=== PATIENT | female | born 1975 | race Caucasian/White ===

== ENCOUNTER 2017-10-14 10:25 | Emergency (ER) | payer OTHER ==
[~2017-10-14] VITALS: Ht 165.1 cm; Wt 108.9 kg
[~2017-10-14 10:25] MED LIST: CIPRO500 MG PO; COUMADIN 5 MG TA5 M1; LIDOCAINE VISC100 M1 MM; NICOTINE TRANSD21 M1 TRANSDERM; NOHOMEMEDICATIONS; NORCO 5-325 TA1 EACH PO; OXYCODONE HCL5 M1 PO; PREDNISONE 20 M20 MG PO; PREVACID 24HR15 MG PO; VENTOLIN HFA 1818 GM INH
[2017-10-14] MEDS ORDERED: AMOXICILLIN 50500 M1 PO (11:25)
[2017-10-14] MEDS ORDERED: PREDNISONE 20 M20 MG PO (11:25)
[2017-10-14 12:44] VITALS: BP 145/76
== END 2017-10-14 12:45 | disposition home or self-care (01) ==
LOC: ER 10:25
DX: H66.91 Otitis media, unspecified, right ear (principal); J45.909 Unspecified asthma, uncomplicated; F17.210 Nicotine dependence, cigarettes, uncomplicated

== ENCOUNTER 2017-10-18 19:28 | Emergency (ER) | payer OTHER ==
[~2017-10-18] VITALS: Ht 165.1 cm; Wt 105.2 kg
--- NOTE | ~2017-10-18 | EKG ---
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
[~2017-10-18 19:28] MED LIST changes: +AMOXICILLIN 50500 M1 PO
[2017-10-18 20:17] LABS: HEMATOCRIT 41.9 % (37.0-47.0); HEMOGLOBIN 14.2 gm/dL (12.0-15.0); MCH 27.4 pg (26.0-34.0); MCHC 33.9 g/dL (28.0-37.0); MCV 80.8 fL (80.0-100.0); PLATELET COUNT 347 thou/uL (150-400); RBC 5.19 mil/uL (4.20-5.00); RDW 14.8 % (10.5-14.5); WBC 20.8 thou/uL (4.0-11.0)
[2017-10-18 20:27] LABS: ANION GAP 9 mmol/L (7-16); BUN 16 mg/dL (7-18); CALCIUM 8.8 mg/dL (8.5-10.1); CHLORIDE 107 mmol/L (98-107); CO2 26 mmol/L (21-32); GLUCOSE 213 mg/dL (74-106); POTASSIUM 4.5 mmol/L (3.5-5.1); SODIUM 142 mmol/L (136-145)
[2017-10-18 20:36] LABS: TROPONIN-I < 0.04 ng/mL (<0.06)
[2017-10-18 20:48] LABS: ABSOLUTE NEUTROPHILS 15.4 thou/uL (1.4-8.2)
[2017-10-18] MEDS ORDERED: ANTIVERT25 MG PO (21:02)
[2017-10-18] MEDS ORDERED: PRILOSEC OTC20 MG PO (21:08)
[2017-10-18 21:25] VITALS: BP 139/77
== END 2017-10-18 21:15 | disposition home or self-care (01) ==
LOC: ER 19:28
PROVIDERS: Physician Assistant
DX: K21.9 Gastro-esophageal reflux disease without esophagitis (principal); J32.9 Chronic sinusitis, unspecified; R42 Dizziness and giddiness; Z86.14 Personal history of Methicillin resistant Staphylococcus aureus infection; F17.210 Nicotine dependence, cigarettes, uncomplicated

== ENCOUNTER 2018-01-14 17:12 | Emergency (ER) | payer OTHER ==
[~2018-01-14] VITALS: Ht 165.1 cm; Wt 108.9 kg
--- NOTE | ~2018-01-14 | EKG ---
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: : 1975 Requested By: Maria Alejandra Ricardo Order Number: [id number] MD: Spencer Spencer Measurements Intervals [place] Rate: 68 P: 51 [place]: 153 QRS: -34 QRSD: 87 T: 18 QT: 386 QTc: 411 Interpretive Statements Sinus rhythm Left axis deviation Poor R wave progression Compared to ECG 10/18/2017 19:53:19 No significant change was found Electronically Signed On 01-15-2018 11:48:56 CDT by Spencer Spencer [email or web address] <ELECTRONICALLY SIGNED> By: Spencer Spencer MD, [facility] 01/15/18 1148 D: 06/1829 29 Spencer Spencer MD, FACC /EPI
[~2018-01-14 17:12] MED LIST changes: +ANTIVERT25 MG PO; +PRILOSEC OTC20 MG PO
[2018-01-14 18:09] LABS: ABSOLUTE NEUTROPHILS 6.9 thou/uL (1.4-8.2); BASOPHILS 0.8 % (0.0-2.0); EOSINOPHILS 1.3 % (0.0-3.0); HEMATOCRIT 44.7 % (37.0-47.0); HEMOGLOBIN 14.8 gm/dL (12.0-15.0); LYMPHOCYTES 31.8 % (24.0-44.0); MCHC 33.1 g/dL (28.0-37.0); MCV 81.7 fL (80.0-100.0); PLATELET COUNT 291 thou/uL (150-400); POLYS 60.1 % (36.0-66.0); RBC 5.47 mil/uL (4.20-5.00); RDW 14.5 % (10.5-14.5); WBC 11.4 thou/uL (4.0-11.0)
[2018-01-14 18:17] LABS: CALCIUM 8.7 mg/dL (8.5-10.1); CREATININE 1.1 mg/dL (0.6-1.0); POTASSIUM 3.9 mmol/L (3.5-5.1)
[2018-01-14 18:23] LABS: ALBUMIN 3.3 g/dL (3.4-5.0); TOTAL BILIRUBIN 0.4 mg/dL (<0.1-1.0); TOTAL PROTEIN 7.3 g/dL (6.4-8.2)
[2018-01-14 18:39] LABS: URINE BILIRUBIN NEGATIVE (Negative); URINE BLOOD TRACE (Negative); URINE CLARITY CLEAR; URINE COLOR YELLOW; URINE GLUCOSE-RANDOM* NEGATIVE (Negative); URINE KETONES NEGATIVE (Negative); URINE LEUKOCYTES-REFLEX NEGATIVE (Negative); URINE NITRITE-REFLEX NEGATIVE (Negative); URINE PROTEIN (DIPSTICK) NEGATIVE (Negative); URINE SPECIFIC GRAVITY <= 1.005 (1.005-1.035); URINE UROBILINOGEN 0.2 E.U./dl (0.2-1.0)
[2018-01-14] MEDS ORDERED: ZYRTEC-D TABLE1 EAC1 PO (19:24)
[2018-01-14] MEDS ORDERED: FLONASE 0.05%50 MCG NASAL (19:24)
== END 2018-01-14 19:51 | disposition home or self-care (01) ==
LOC: ER 17:12
PROVIDERS: Nurse Practitioner Family
DX: E86.0 Dehydration (principal); H65.22 Chronic serous otitis media, left ear; F17.210 Nicotine dependence, cigarettes, uncomplicated

== ENCOUNTER 2018-05-08 19:34 | Emergency (ER) | payer OTHER ==
[~2018-05-08] VITALS: Ht 167.6 cm; Wt 113.4 kg
[~2018-05-08 19:34] MED LIST changes: +FLONASE 0.05%50 MCG NASAL; +ZYRTEC-D TABLE1 EAC1 PO
[2018-05-08] MEDS ORDERED: ALEVE220 MG PO (19:41)
== END 2018-05-08 20:20 | disposition home or self-care (01) ==
LOC: ER 19:34
DX: M67.441 Ganglion, right hand (principal); F17.210 Nicotine dependence, cigarettes, uncomplicated; L40.9 Psoriasis, unspecified

== ENCOUNTER 2018-05-15 17:06 | Emergency (ER) | payer OTHER ==
[~2018-05-15] VITALS: Ht 167.6 cm; Wt 113.4 kg
[~2018-05-15 17:06] MED LIST changes: +ALEVE220 MG PO
[2018-05-15] MEDS ORDERED: MOBIC7.5 MG PO (17:35)
== END 2018-05-15 18:04 | disposition home or self-care (01) ==
LOC: ER 17:06
DX: M65.241 Calcific tendinitis, right hand (principal); F17.210 Nicotine dependence, cigarettes, uncomplicated; L40.9 Psoriasis, unspecified